=== PATIENT | female | born 1940 | race Caucasian/White ===

== ENCOUNTER → 2016-09-28 | Outpatient (CLI) | payer MEDICARE, OTHER ==
[2016-09-28 08:23] LABS: Basophils % (A) 0 %; CH 30.1; CHCM 33.9; Eosinophils # (A) 0.1 k/uL (0-0.7); Eosinophils % (A) 1 %; HDW 2.43; Luc # (Auto) 0.13; Luc % (Auto) 2; Lymphocytes # (A) 2.4 k/uL (1.0-4.8); Lymphocytes % (A) 39 %; MCH 30.2 pg (25.0-35.0); MCHC 33.9 g/dL (31.0-37.0); Mean Platelet Volume 6.6; Monocytes # (A) 0.3 k/uL (0-1.0); Monocytes % (A) 5 %; Neutrophils # (A) 3.2 k/uL (1.3-7.7); Neutrophils % (A) 53 %; RBC 5.62 m/uL (3.80-5.40); RDW 12.8 % (11.5-15.5); WBC (Perox) 5.98
[2016-09-28 08:29] LABS: INR 1.2 (<1.1); Prothrombin Time 11.7 sec (9.0-12.0)
[2016-09-28 08:56] LABS: Bilirubin, Delta 0.3 mg/dL (0.0-0.2); Total Bilirubin 0.8 mg/dL (0.2-1.3); Total Protein 7.8 g/dL (6.3-8.2)
[2016-09-29 15:23] LABS: Hepatits C Virus RNA, Quant <12 IU/mL (<12); LOG HCV IU/mL <1.08 (<1.08)
== END | disposition home or self-care (01) ==
LOC: LABWHC1 07:42
PROVIDERS: ATTEND Internal Medicine Gastroenterology
DX: K74.60 Unspecified cirrhosis of liver (principal); B18.2 Chronic viral hepatitis C
CPT/HCPCS: 36415; 80076; 82105; 85025; 85610; 87522

== ENCOUNTER → 2016-11-26 | Outpatient (CLI) | payer MEDICARE, OTHER ==
--- NOTE | 2016-11-26 07:47 | US ---
EXAMINATION TYPE: US liver DATE OF EXAM: 11/26/2016 COMPARISON: NONE CLINICAL HISTORY: B18.2 Chronic Hep C. Patient stated took Hep C antiviral medication last year. EXAM MEASUREMENTS: Liver Length: 16.9 cm Gallbladder Wall: 0.1 cm CBD: 0.5 cm Right Kidney: 9.8 x 5.1 x 3.6 cm Pancreas: wnl Liver: coarse texture Gallbladder: wnl Evidence for sonographic Lewis's sign: No CBD: wnl Right Kidney: mid pole cortical cyst = 1.5 x 1.8 x 1.3cm and lower pole cyst = 1.0 x 1.1 x 0.9cm. IMPRESSION: 1. Probable fatty liver. 2. Right renal cysts
== END | disposition home or self-care (01) ==
LOC: RADUSWWP 06:57
PROVIDERS: ATTEND Internal Medicine Gastroenterology
DX: Q61.02 Congenital multiple renal cysts (principal)
CPT/HCPCS: 76705

== ENCOUNTER → 2017-04-03 | Outpatient (CLI) | payer MEDICARE, OTHER ==
[2017-04-03 08:58] LABS: Basophils % (A) 0 %; CH 29.2; Eosinophils # (A) 0.1 k/uL (0-0.7); Eosinophils % (A) 1 %; HCT 51.8 % (34.0-46.0); HDW 2.11; HGB 16.3 gm/dL (11.4-16.0); Luc # (Auto) 0.16; Luc % (Auto) 2; Lymphocytes # (A) 2.4 k/uL (1.0-4.8); Lymphocytes % (A) 33 %; MCH 28.9 pg (25.0-35.0); MCHC 31.5 g/dL (31.0-37.0); MCV 91.8 fL (80.0-100.0); Mean Platelet Volume 7.1; Monocytes # (A) 0.4 k/uL (0-1.0); Monocytes % (A) 6 %; Neutrophils # (A) 4.1 k/uL (1.3-7.7); Neutrophils % (A) 58 %; RBC 5.64 m/uL (3.80-5.40); RDW 14.8 % (11.5-15.5); WBC 7.1 k/uL (3.8-10.6); WBC (Perox) 6.71
[2017-04-03 09:00] LABS: INR 1.2 (<1.2); Prothrombin Time 12.1 sec (9.0-12.0)
[2017-04-03 09:17] LABS: Bilirubin, Delta 0.2 mg/dL (0.0-0.2); Total Bilirubin 0.8 mg/dL (0.2-1.3); Total Protein 7.9 g/dL (6.3-8.2)
[2017-04-05 14:56] LABS: Hepatits C Virus RNA, Quant <12 IU/mL (<12); LOG HCV IU/mL <1.08 (<1.08)
== END | disposition home or self-care (01) ==
LOC: LABWHC1 08:34
PROVIDERS: ATTEND Physician Assistant
DX: B18.2 Chronic viral hepatitis C (principal)
CPT/HCPCS: 36415; 80076; 82105; 85025; 85610; 87522

== ENCOUNTER → 2018-05-31 | Outpatient (CLI) | payer MEDICARE, OTHER ==
--- NOTE | 2018-05-31 10:04 | US ---
EXAMINATION TYPE: US liver DATE OF EXAM: 05/31/2018 COMPARISON: 11/26/2016 CLINICAL HISTORY: 77-year-old female B18.2 Hep C. Follow-up to assess liver, no symptoms TECHNIQUE: Multiple sonographic images of the right upper quadrant are obtained. FINDINGS: EXAM MEASUREMENTS: Liver Length: 16.5 cm Gallbladder Wall: 0.2 cm CBD: 6.8 mm, mildly dilated. Right Kidney: 10.7 x 4.7 x 3.5 cm Pancreas: wnl Liver: Mild coarsened echotexture without focal lesion. Gallbladder: multiple folds seen. No abnormal distention or shadowing calculi. Evidence for sonographic Lewis's sign: no CBD: Mildly dilated but within acceptable limits for patient's age. Previously, the bile duct was me asured at 5 mm. Right Kidney: 1.3cm inferior pole cyst there is no hydronephrosis. IMPRESSION: 1. Slight coarsened echotexture of the liver suggests nonspecific hepatocellular disease. No sonograp hic evidence for hepatoma. 2. The bile duct is mildly dilated at 6.8 mm. This is within acceptable limits for patient's age but caliber is noted to have increased in size from 5 mm on and 11/26/2016. As a precautionary measure, cor relate with alkaline phosphatase and bilirubin levels.
== END | disposition home or self-care (01) ==
LOC: RADUSWWP 07:18
PROVIDERS: ATTEND Internal Medicine Gastroenterology
DX: R93.2 Abnormal findings on diagnostic imaging of liver and biliary tract (principal); B18.2 Chronic viral hepatitis C
CPT/HCPCS: 76705

== ENCOUNTER → 2018-07-22 | Outpatient (CLI) | payer MEDICARE, OTHER ==
[2018-07-22 08:54] LABS: Basophils % (A) 0 %; Eosinophils % (A) 1 %; HCT 47.8 % (34.0-46.0); HGB 15.4 gm/dL (11.4-16.0); Lymphocytes # (A) 1.4 k/uL (1.0-4.8); Lymphocytes % (A) 30 %; MCH 29.1 pg (25.0-35.0); MCHC 32.3 g/dL (31.0-37.0); Monocytes # (A) 0.3 k/uL (0-1.0); Monocytes % (A) 6 %; Neutrophils # (A) 2.8 k/uL (1.3-7.7); Neutrophils % (A) 62 %; Platelet Count 166 k/uL (150-450); RBC 5.31 m/uL (3.80-5.40); RDW 13.3 % (11.5-15.5); WBC 4.5 k/uL (3.8-10.6)
[2018-07-22 09:06] LABS: INR 1.2 (<1.2); Prothrombin Time 12.1 sec (9.0-12.0)
[2018-07-22 18:37] LABS: Albumin 4.6 g/dL (3.80-4.90); Albumin/Globulin Ratio 2.42 (1.60-3.17); Bilirubin, Conjugated 0.4 mg/dL (0.20-0.40); Bilirubin,Unconjugated 0.7 mg/dL; Globulin 1.9 g/dL (1.6-3.3); Total Bilirubin 1.1 mg/dL (0.2-1.2); Total Protein 6.5 g/dL (6.2-8.2)
== END ==
LOC: LABWHC1 08:26
PROVIDERS: ATTEND Internal Medicine Gastroenterology
DX: B18.2 Chronic viral hepatitis C (principal)
CPT/HCPCS: 36415; 80076; 82105; 85025; 85610

== ENCOUNTER → 2018-07-22 | Outpatient (CLI) | payer MEDICARE, OTHER ==
--- NOTE | 2018-07-22 21:14 | BD ---
EXAMINATION TYPE: Axial Bone Density DATE OF EXAM: 07/22/2018 BASELINE STUDY COMPARISON: NONE CLINICAL HISTORY: 77 YR OLD FEMALE...ICD-10 CODE: ASYMPTOMATIC MENOPAUSAL STATE Height: 62.4 Weight: 151 FRAX RISK QUESTIONS: History of Fracture in Adulthood: YOUNG ADULT ONLY Secondary Osteoporosis: UNSURE UNSURE RISK FACTORS HISTORY OF: History of Wrist Fracture: ARM CHILD ....POOR HISTORIAN, CONFUSED...APPEARS CHALLENGED Family History of Osteoporosis: UNSURE Active: YES Postmenopausal woman: YES AT 54 Take estrogen and/or progesterone medications: BCP IN HER EARLY ADULT YRS Hyperparathyroidism: UNSURE Adrenal Insufficiency: UNSURE MEDICATIONS: Additional Medications: IBUPROFEN AND ASPIRIN, HEART BURN MEDS NEEDED, ANTIBIOTICS, PT CLAIMS TO T ИВАН NO PRESCRIPTION MEDICATION......PT CONFUSED....APPEARS CHALLENGED Additional History: NOTHING TO NOTE HERE EXAM MEASUREMENTS: Bone mineral densitometry was performed using the [employer] System. Bone mineral density as measured about the Lumbar spine is: ----- L1-L4(G/cm2): 0.770 T Score Values are as follows: ----- L1: -3.7 ----- L2: -4.2 ----- L3: -3.9 ----- L4: -2.8 ----- L1-L4: -3.6 Bone mineral density BASELINE STUDY?.....POOR HISTORIAN, CONFUSED....THOUGHT SHE WAS HAVING ANK LE IMAGED Bone mineral density about the R hip (g/cm2): 0.679 Bone mineral density about the L hip (g/cm2): 0.655 T Score values are as follows: -----R Neck: -2.2 -----L Neck: -2.9 -----R Total: -2.6 -----L Total: -2.8 Bone mineral density BASELINE? FRAX%s: THERE IS A 20.3% CHANCE FOR A MAJOR OSTEOPOROTIC FX AND A 7.5% FOR HIP .....PROBABILITY OF FX IN 10 YRS TIME IMPRESSION: Osteoporosis (T Score less than -2.5). There is increased fracture risk and therapy is usually indicated based on age. Re-Screen 1-2 years. NOTE: T-SCORE=SD OF THE YOUNG ADULT MEAN.
--- NOTE | 2018-07-25 11:58 | MM ---
Reason for exam: screening (asymptomatic). Last mammogram was performed 3 years and 3 months ago. History: Patient is postmenopausal and is nulliparous. Family history of breast cancer in paternal aunt. Physical Findings: A clinical breast exam by your physician is recommended on an annual basis and results should be correlated with mammographic findings. MG 3D Screening Mammo W/Cad Bilateral CC and MLO view(s) were taken. XCCL view(s) were taken of the right breast. Prior study comparison: May 02, 2015, mammogram, performed at [facility]. The breast tissue is heterogeneously dense. This may lower the sensitivity of mammography. There are stable left breast calcifications. No suspicious abnormality. No significant changes when compared with prior studies. ASSESSMENT: Benign, BI-RAD 2 RECOMMENDATION: Routine screening mammogram of both breasts in 1 year.
== END | disposition home or self-care (01) ==
LOC: RADMAMWWP 07:04
PROVIDERS: ATTEND Family Medicine
DX: Z12.31 Encounter for screening mammogram for malignant neoplasm of breast (principal); M81.0 Age-related osteoporosis without current pathological fracture; Z78.0 Asymptomatic menopausal state
CPT/HCPCS: 77063; 77067; 77080

== ENCOUNTER → 2019-04-05 | Outpatient (CLI) | payer MEDICARE, OTHER ==
--- NOTE | 2019-04-05 12:52 | US ---
EXAMINATION TYPE: US venous doppler duplex LE RT DATE OF EXAM: 04/05/2019 12:35 PM COMPARISON: NONE CLINICAL HISTORY: Swelling R22.41. Intermittent right leg pain and swelling x couple months following fall SIDE PERFORMED: Right TECHNIQUE: The lower extremity deep venous system is examined utilizing real time linear array sonog telma with graded compression, doppler sonography and color-flow sonography. VESSELS IMAGED: External Iliac Vein (EIV) Common Femoral Vein Deep Femoral Vein Greater Saphenous Vein * Femoral Vein Popliteal Vein Small Saphenous Vein * Proximal Calf Veins (* superficial vessels) Grayscale, color doppler, spectral doppler imaging performed of the deep veins of the right lower ext remity. There is normal flow, compressibility, vascular waveforms. Right Leg: Appears negative for DVT IMPRESSION: No sonographic evidence of deep venous thrombosis within the right lower extremity.
== END | disposition home or self-care (01) ==
LOC: RADUSWWP 12:05
PROVIDERS: ATTEND Family Medicine
DX: R22.41 Localized swelling, mass and lump, right lower limb (principal)